=== PATIENT | female | born 1995 | race Caucasian/White ===

== ENCOUNTER 2019-04-28 00:46 | Emergency (ER) | payer OTHER ==
[~2019-04-28] VITALS: Ht 172.7 cm; Wt 61.4 kg
--- NOTE | 2019-04-28 01:00 | NUR ---
Patient to CT.
[2019-04-28 01:49] VITALS: BP 136/83
== END 2019-04-28 01:51 | disposition home or self-care (01) ==
LOC: ER 00:47
DX: S05.11XA Contusion of eyeball and orbital tissues, right eye, initial encounter (principal); Y04.0XXA Assault by unarmed brawl or fight, initial encounter; Y93.89 Activity, other specified; Y92.89 Other specified places as the place of occurrence of the external cause; Y99.9 Unspecified external cause status
CPT/HCPCS: 70450; 70486; 99284